=== PATIENT | male | born 1990 | race Caucasian/White ===

== ENCOUNTER 2016-06-26 15:20 | Inpatient (IN) | payer OTHER ==
[~2016-06-26] VITALS: Ht 175.3 cm; Wt 91.9 kg
--- NOTE | ~2016-06-26 | HC ---
[facility] [place] [address] CONSULTATION Name: ANTONIO BARRAZA Room #: 219-P [facility] IN .R.#: [id number] Admission: 06/26/16 Attend Phys: Audi Beyer MD Discharge: Date of : 88 Report #: [id number] THIS REPORT FOR: //name// CC: TITO physician/PCP Audi Beyer DATE OF SERVICE: 06/26/2016 REFERRING PROVIDER: Dr. Pichardo. REASON FOR CONSULTATION: Abdominal pain. HISTORY OF PRESENT ILLNESS: The patient is a 26-year-old male, who presented to the emergency room with left lower quadrant abdominal pain, nausea and fever. The patient initially had symptoms 3 weeks ago where he made an appointment to be seen; however, his symptoms resolved spontaneously and he postponed being seen. Unfortunately, the patient's symptoms have returned and he presented to the emergency room for evaluation earlier today, which showed leukocytosis, febrile episode and a CT scan that showed his entire left colon being inflamed with a focal area of extraluminal air consistent with microperforation. The patient has been admitted and I have been asked to evaluate. Currently, the patient exhibits no signs of peritonitis and is resting comfortably in his bed after receiving pain medication. PAST MEDICAL HISTORY: None. HOME MEDICATIONS: None. ALLERGIES: No known drug allergies. FAMILY HISTORY: Reviewed and noncontributory. SOCIAL HISTORY: The patient does not utilize cigarettes or illicit drugs. He does consume alcohol socially on the weekends and does use chewing tobacco. REVIEW OF SYSTEMS: GENERAL: The patient states positive fevers and chills. No recent weight loss. HEENT: No change in vision, no change in hearing. NECK: No swelling or difficulty swallowing. HEART: No chest pain or palpitations. LUNGS: No cough or shortness of breath. ABDOMEN: Abdominal pain with nausea. GENITOURINARY: No dysuria or hematuria. ENDOCRINE: No polyuria, polydipsia. HEMATOLOGIC: No history of bleeding or easy bruising. EXTREMITIES: No history weakness or limited range of motion. [facility] [address] [place] [address] CONSULTATION Name: ANTONIO BARRAZA Room #: 219-P [facility] IN M.R.#: [id number] Admission: 06/26/16 Attend Phys: Audi Beyer MD Discharge: Date of : 88 Report #: [id number] NEUROLOGIC: No history of syncope or near syncopal episodes. SKIN AND INTEGUMENT: No history of abnormal lesions or moles. PSYCHIATRIC: No history of anxiety or depression. PHYSICAL EXAMINATION: VITAL SIGNS: Temperature 97.9, pulse 85, respirations 18, blood pressure 122/71. He stands 5 feet 9 inches tall and weighs 179 pounds. GENERAL: Alert and oriented, although somnolent, in no acute distress. HEENT: Normocephalic, atraumatic. Pupils equal, round, reactive to light. NECK: Supple, without lymphadenopathy. Trachea midline. HEART: Regular rate and rhythm. LUNGS: Clear to auscultation bilaterally. ABDOMEN: Soft, nondistended. He is tender to palpation in the entire left flank with minimal guarding and no rebound. GENITOURINARY: Normal external male genitalia. EXTREMITIES: No clubbing, cyanosis or edema. NEUROLOGIC: Cranial nerves 2-12 are grossly intact. PSYCHIATRIC: Normal mood and affect. SKIN AND INTEGUMENT: No abnormal lesions or moles. LABORATORY AND X-RAY DATA: CBC shows a white blood cell count of 19.1 thousand, hemoglobin 14.6, platelets 260,000. He does have 87% neutrophils. His creatinine is 1.4. Liver function enzymes are largely normal with the exception of his bilirubin slightly elevated at 1.7, albumin is 4.2. Urinalysis is largely negative except he does have 1+ bilirubin. Lactic acid normal at 0.8. CT scan of the abdomen and pelvis shows long segment left colonic inflammation with microperforation and contained air. He also has wall thickening of the urinary bladder, likely secondary to its juxtaposition next to the inflamed colon. ASSESSMENT AND PLAN: A 26-year-old male with left-sided colitis. This is likely inflammatory bowel disease versus infectious and less likely diverticulitis with microperforation. Nonetheless, the patient is not toxic at this time with no peritonitis and will be managed conservatively with IV fluid rehydration, bowel rest with n.p.o. status and IV antibiotics in the form of Zosyn and Flagyl. We will perform serial abdominal exams, repeat labs daily and if the patient continues to improve, repeat his CAT scan in 3 days' time for further evaluation. I will ask gastroenterology to evaluate as the patient will undoubtedly need colonoscopy in 4-6 weeks' time after resolution of his symptoms to further evaluate. In the meantime, we will obtain stool studies for routine pathogens as well as C. diff colitis. [facility] [address] [place] [address] CONSULTATION Name: ANTONIO BARRAZA Room #: 219-P AD[facility] IN M.R.#: [id number] Admission: 06/26/16 Attend Phys: Audi Beyer MD Discharge: Date of : 89 Report #: [id number] I sincerely appreciate this consult. I will follow closely and leave any further recommendations in the patient's chart as appropriate. <ELECTRONICALLY SIGNED> By: Romina Jefferson MD, FACS 06/29/16 0748 [id number] Romina Jefferson MD, FACS /nt
[2016-06-26 15:38] VITALS: BP 130/83
[2016-06-26 17:44] LABS: URINE BILIRUBIN 1+ (Negative); URINE BLOOD TRACE (Negative); URINE COLOR YELLOW; URINE GLUCOSE-RANDOM* NEGATIVE (Negative); URINE KETONES NEGATIVE (Negative); URINE NITRITE NEGATIVE (Negative); URINE PROTEIN (DIPSTICK) TRACE (Negative); URINE UROBILINOGEN 0.2 E.U./dl (0.2-1.0)
[2016-06-26 17:45] LABS: ICTOTEST (BILI CONFIRMATORY) Negative (Negative)
[2016-06-26 18:04] LABS: RBC 4.64 mil/uL (4.50-6.00); RDW 13.2 % (10.5-14.5)
[2016-06-26 18:06] LABS: HEMATOCRIT 41.4 % (42.0-52.0); HEMOGLOBIN 14.6 gm/dL (14.0-18.0); MCH 31.4 pg (26.0-34.0); MCHC 35.3 g/dL (28.0-37.0); MCV 89.1 fL (80.0-100.0); PLATELET COUNT 260 thou/uL (150-400); WBC 19.1 thou/uL (4.0-11.0)
[2016-06-26 18:07] LABS: MANUAL DIFF YES
[2016-06-26 18:16] LABS: CALCIUM 9.5 mg/dL (8.5-10.1); CREATININE 1.4 mg/dL (0.7-1.3); POTASSIUM 3.7 mmol/L (3.5-5.1)
[2016-06-26 18:20] LABS: ALBUMIN 4.2 g/dL (3.4-5.0); TOTAL BILIRUBIN 1.7 mg/dL (<0.1-1.0); TOTAL PROTEIN 8.5 g/dL (6.4-8.2)
[2016-06-26 19:02] LABS: ABSOLUTE NEUTROPHILS 16.6 thou/uL (1.4-8.2); PLATELET ESTIMATE NORMAL; TOTAL CELL COUNT 100
[2016-06-26 20:52] VITALS: BP 122/71
[2016-06-26 23:42] VITALS: BP 112/72
[2016-06-27 04:03] VITALS: BP 113/65
[2016-06-27 04:08] LABS: HEMATOCRIT 37.4 % (42.0-52.0); HEMOGLOBIN 12.9 gm/dL (14.0-18.0); MCH 31.4 pg (26.0-34.0); MCHC 34.5 g/dL (28.0-37.0); MCV 90.9 fL (80.0-100.0); RBC 4.12 mil/uL (4.50-6.00); RDW 13.3 % (10.5-14.5)
[2016-06-27 04:11] LABS: CALCIUM 8.8 mg/dL (8.5-10.1); CREATININE 1.2 mg/dL (0.7-1.3); POTASSIUM 3.8 mmol/L (3.5-5.1)
[2016-06-27 12:10] VITALS: BP 101/70
[2016-06-27 17:05] VITALS: BP 122/79
[2016-06-27 20:06] VITALS: BP 123/76
[2016-06-28 03:08] LABS: HEMATOCRIT 33.5 % (42.0-52.0); HEMOGLOBIN 11.7 gm/dL (14.0-18.0); MCH 31.5 pg (26.0-34.0); MCV 89.8 fL (80.0-100.0); RBC 3.73 mil/uL (4.50-6.00)
[2016-06-28 03:34] LABS: ALBUMIN 2.8 g/dL (3.4-5.0); CALCIUM 8.6 mg/dL (8.5-10.1); CREATININE 1.1 mg/dL (0.7-1.3); DIRECT BILIRUBIN 0.5 mg/dL (<0.1-0.3); POTASSIUM 3.8 mmol/L (3.5-5.1); TOTAL BILIRUBIN 1.3 mg/dL (<0.1-1.0); TOTAL PROTEIN 6.3 g/dL (6.4-8.2)
[2016-06-28 05:53] VITALS: BP 121/74
[2016-06-28 07:14] VITALS: BP 115/75
[2016-06-28 11:24] VITALS: BP 130/86
[2016-06-28 15:40] VITALS: BP 125/87
[2016-06-28 19:17] VITALS: BP 127/87
[2016-06-29 03:23] LABS: HEMATOCRIT 34.4 % (42.0-52.0); MCH 31.5 pg (26.0-34.0); MCHC 34.8 g/dL (28.0-37.0); MCV 90.6 fL (80.0-100.0); RBC 3.8 mil/uL (4.50-6.00); RDW 13.1 % (10.5-14.5)
[2016-06-29 03:42] VITALS: BP 125/92
[2016-06-29 03:54] LABS: ALBUMIN 2.9 g/dL (3.4-5.0); CALCIUM 8.6 mg/dL (8.5-10.1); POTASSIUM 3.5 mmol/L (3.5-5.1); TOTAL BILIRUBIN 1.1 mg/dL (<0.1-1.0); TOTAL PROTEIN 6.5 g/dL (6.4-8.2)
[2016-06-29 07:35] VITALS: BP 125/84
[2016-06-29 11:50] VITALS: BP 110/74
[2016-06-29] MEDS ORDERED: FLAGYL500 MG PO (15:14)
[2016-06-29] MEDS ORDERED: HYDROCODONE-AP1 EAC6 PO (15:14)
[2016-06-29] MEDS ORDERED: CIPRO500 MG PO (15:14)
[2016-06-29 15:39] VITALS: BP 110/74
[2016-06-29 17:10] VITALS: BP 110/74
== END 2016-06-29 17:15 | disposition home or self-care (01) | DRG 392 ==
LOC: ER 15:20 → 2N 19:46 → EROBS 19:46 → 2N 20:21
PROVIDERS: Emergency Medicine; Physician Assistant; Surgery
DX: K57.80 Diverticulitis of intestine, part unspecified, with perforation and abscess without bleeding (principal); N17.9 Acute kidney failure, unspecified; F17.210 Nicotine dependence, cigarettes, uncomplicated; K52.9 Noninfective gastroenteritis and colitis, unspecified; D72.829 Elevated white blood cell count, unspecified; E86.0 Dehydration; Z71.6 Tobacco abuse counseling
CPT/HCPCS: 10194

== ENCOUNTER → 2016-08-18 | Outpatient (CLI) | payer OTHER ==
[~2016-08-18] VITALS: Ht 172.7 cm; Wt 86.2 kg
[~2016-08-18] MED LIST: ADVIL200 M1 PO; CIPRO500 MG PO; CIPROFLOXACIN500 M1 PO; FLAGYL500 MG PO; HYDROCODONE-AP1 EAC6 PO; MULTI VITAMIN1 EACH PO; NORCO 5-325 TA1 EACH PO
== END | disposition home or self-care (01) ==
LOC: GI 08:01
DX: K57.30 Diverticulosis of large intestine without perforation or abscess without bleeding (principal); Z98.890 Other specified postprocedural states
CPT/HCPCS: 62110; 62900

== ENCOUNTER 2016-09-13 20:56 | Inpatient (IN) | payer OTHER ==
[~2016-09-13] VITALS: Ht 172.7 cm; Wt 83.9 kg
--- NOTE | ~2016-09-13 | HC ---
[facility] [place] [address] CONSULTATION Name: ANTONIO BARRAZA Room #: 305-P [facility]..#: [id number] Admission: 09/14/16 Attend Phys: Jean Horne MD Discharge: 09/16/16 Date of : 89 Report #: [id number] THIS REPORT FOR: //name// CC: Jean Ordonez DATE OF SERVICE: 09/14/2016 REFERRING PROVIDER: Jean Horne M.D. REASON FOR CONSULTATION: Abdominal pain. HISTORY OF PRESENT ILLNESS: The patient is a 26-year-old male who is well known to me as I have seen him for prior episode of sigmoid diverticulitis with microperforation. Since my initial meeting with him in June of this past year, he has had 2 subsequent bouts of recurrent sigmoid diverticulitis without microperforation that have been treated with oral antibiotic therapy as an outpatient. The patient did receive a colonoscopy a few weeks ago by Dr. Treviño which showed a singular diverticulum within the sigmoid colon; however, no other acute findings. As the patient has had recurrent left lower quadrant pain said and he presented back to the Emergency Room for evaluation, whereby he was found to have yet again another bout of sigmoid diverticulitis with a small microperforation and for that reason, I have been asked to evaluate. Currently, the patient feels well with the exception of left lower quadrant pain and diarrhea and has no other complaints today. PAST SURGICAL HISTORY: None other than his recurrent sigmoid diverticulitis. HOME MEDICATIONS: Multivitamin and Advil p.r.n. ALLERGIES: No known drug allergies. SOCIAL HISTORY: The patient does not utilize cigarettes or illicit drugs. He drinks alcohol socially and never to excess and does chew tobacco occasionally. FAMILY HISTORY: Reviewed and is reviewed and noncontributory. REVIEW OF SYSTEMS: GENERAL: The patient states he has had subjective fevers and chills. HEENT: No change in vision, change in hearing. NECK: No swelling or difficulty swallowing. HEART: No chest pain, palpitations. LUNGS: No cough or shortness of breath. ABDOMEN: Abdominal pain with diarrhea. GENITOURINARY: No dysuria or hematuria. ENDOCRINE: No polyuria, polydipsia. HEMATOLOGIC: No history of bleeding or easy bruising. [facility] [address] [place] [address] CONSULTATION Name: ANTONIO BARRAZA Room #: 305-P [facility] IN [facility].#: [id number] Admission: 09/14/16 Attend Phys: Jean Horne MD Discharge: 09/16/16 Date of : 89 Report #: [id number] EXTREMITIES: No history of weakness or limited range of motion. NEUROLOGIC: No history of syncope or near syncopal episodes. SKIN AND INTEGUMENT: No history of abnormal lesions or moles. PSYCHIATRIC: No history of anxiety or depression. PHYSICAL EXAMINATION: VITAL SIGNS: Temperature 37.1, pulse 64, respirations 18, blood pressure 109/60. GENERAL: Alert and oriented, in no acute distress. HEENT: Normocephalic, atraumatic. Pupils equal, round, reactive to light. NECK: Supple, without lymphadenopathy. Trachea midline. HEART: Regular rate and rhythm. LUNGS: Clear to auscultation bilaterally. ABDOMEN: Soft, nondistended. He is tender to palpation in left lower quadrant with very minimal guarding, but no rebound. He certainly has no peritoneal signs or symptoms. GENITOURINARY: Normal external male genitalia. EXTREMITIES: No clubbing, cyanosis or edema. NEUROLOGIC: Cranial nerves 2-12 are grossly intact. PSYCHIATRIC: Normal mood and affect. SKIN AND INTEGUMENT: No abnormal lesions or moles. LABORATORY AND X-RAY DATA: CBC showed white blood cell count 11.0 thousand, Hemoglobin 13.6, platelets 282,000. He does have a left shift with 78% neutrophils as well. The patient's creatinine is 1.0. Liver function enzymes are normal. Lipase is normal at 74. Lactate is normal at 0.9. CT scan of the abdomen and pelvis as per HPI shows sigmoid diverticulitis with a solitary diverticulum with adjacent inflammatory fat stranding and a small extraluminal gas bubble concerning for microperforation once again. ASSESSMENT AND PLAN: A 26-year-old male with fourth episode of diverticulitis in 3 months, the second of which is consistent with a microperforation who is currently admitted and on IV fluids. I recommend continuation of IV antibiotics in the form of Zosyn and Flagyl and hopefully he will improve with conservative measures once again. Once we get him through this infectious episode, taking into account, otherwise normal colonoscopy just a month ago, I have recommended a formal sigmoid colectomy for his diverticulitis. I would likely do this laparoscopically with robotic assistance in 2-3 weeks' time once he is over this current infectious episode. After a thorough discussion of this with the patient and his significant other, they have agreed to proceed as outlined. We will therefore continue n.p.o. status, IV fluids, IV antibiotics at this time with a slow advancement in his oral intake as his clinical situation allows and ultimately transition him to oral antibiotics for outpatient therapy in the form of Augmentin and Flagyl as he has recently failed Cipro, Flagyl as a regimen. [facility] [address] [place] [address] CONSULTATION Name: ANTONIO BARRAZA Room #: 305-P [facility] IN M.R.#: [id number] Admission: 09/14/16 Attend Phys: Jean Horne MD Discharge: 09/16/16 Date of : 89 Report #: [id number] I sincerely appreciate this consult. I will follow closely and leave any further recommendations in the patient's chart as appropriate. <ELECTRONICALLY SIGNED> By: Romina Jefferson MD, FACS 09/18/16 0748 [id number] [id number] Romina Jefferson MD, FACS /nt
[2016-09-13 21:11] VITALS: BP 129/85
[2016-09-13] MEDS ORDERED: FLAGYL500 MG PO (22:03)
[2016-09-13] MEDS ORDERED: CIPRO250 M1 PO (22:03)
[2016-09-13 22:31] LABS: ABSOLUTE NEUTROPHILS 8.6 thou/uL (1.4-8.2); BASOPHILS 0.7 % (0.0-2.0); EOSINOPHILS 0.7 % (0.0-3.0); HEMOGLOBIN 13.6 gm/dL (14.0-18.0); LYMPHOCYTES 10.7 % (24.0-44.0); MCH 31.6 pg (26.0-34.0); MCHC 34.9 g/dL (28.0-37.0); MCV 90.5 fL (80.0-100.0); MONOCYTES 9.7 % (1.0-8.0); PLATELET COUNT 282 thou/uL (150-400); POLYS 78.2 % (36.0-66.0); RBC 4.31 mil/uL (4.50-6.00); RDW 14.2 % (10.5-14.5)
[2016-09-13 22:33] LABS: CALCIUM 9.6 mg/dL (8.5-10.1); POTASSIUM 3.7 mmol/L (3.5-5.1)
[2016-09-13 22:37] LABS: MANUAL DIFF NO
[2016-09-13 22:39] LABS: ALBUMIN 3.9 g/dL (3.4-5.0); TOTAL BILIRUBIN 0.8 mg/dL (<0.1-1.0); TOTAL PROTEIN 7.8 g/dL (6.4-8.2)
[2016-09-14 02:18] VITALS: BP 116/68
[2016-09-14 02:30] VITALS: BP 116/68
[2016-09-14 07:47] VITALS: BP 109/60
[2016-09-14 20:00] VITALS: BP 120/80
[2016-09-15] VITALS: BP 115/76
[2016-09-15 04:00] VITALS: BP 113/75
[2016-09-15 05:47] LABS: ABSOLUTE NEUTROPHILS 5.7 thou/uL (1.4-8.2); BASOPHILS 0.8 % (0.0-2.0); EOSINOPHILS 2.4 % (0.0-3.0); HEMATOCRIT 38.2 % (42.0-52.0); HEMOGLOBIN 13.2 gm/dL (14.0-18.0); LYMPHOCYTES 12.8 % (24.0-44.0); MCH 31.3 pg (26.0-34.0); MCHC 34.5 g/dL (28.0-37.0); MCV 90.8 fL (80.0-100.0); MONOCYTES 8.2 % (1.0-8.0); PLATELET COUNT 306 thou/uL (150-400); POLYS 75.8 % (36.0-66.0); RBC 4.21 mil/uL (4.50-6.00); RDW 14.1 % (10.5-14.5); WBC 7.5 thou/uL (4.0-11.0)
[2016-09-15 05:59] LABS: MANUAL DIFF NO
[2016-09-15 08:21] VITALS: BP 118/85
[2016-09-15 15:36] VITALS: BP 110/67
[2016-09-15 19:50] VITALS: BP 122/79
[2016-09-16 03:45] VITALS: BP 117/66
[2016-09-16 03:51] LABS: CALCIUM 8.9 mg/dL (8.5-10.1); CREATININE 0.9 mg/dL (0.7-1.3); POTASSIUM 3.5 mmol/L (3.5-5.1)
[2016-09-16 04:05] LABS: HEMATOCRIT 36.6 % (42.0-52.0); HEMOGLOBIN 13.1 gm/dL (14.0-18.0); MCH 31.8 pg (26.0-34.0); MCHC 35.7 g/dL (28.0-37.0); MCV 88.9 fL (80.0-100.0); RBC 4.12 mil/uL (4.50-6.00); RDW 13.9 % (10.5-14.5); WBC 4.7 thou/uL (4.0-11.0)
[2016-09-16 08:20] VITALS: BP 119/80
[2016-09-16] MEDS ORDERED: AUGMENTIN 875875 MG PO ×2 (13:45→14:04)
[2016-09-16] MEDS ORDERED: TRAMADOL 50 MG50 MG PO (14:03)
[2016-09-16] MEDS ORDERED: FLAGYL500 MG PO (14:05)
[2016-09-16 14:06] VITALS: BP 119/80
[2016-09-16 14:35] VITALS: BP 119/80
== END 2016-09-16 14:30 | disposition home or self-care (01) | DRG 392 ==
LOC: ER 20:56 → 3N 09-14 00:55 → EROBS 09-14 00:55 → 3N 09-14 02:44
PROVIDERS: Emergency Medicine; Nurse Practitioner Adult Health; Surgery
DX: K57.20 Diverticulitis of large intestine with perforation and abscess without bleeding (principal); K08.409 Partial loss of teeth, unspecified cause, unspecified class; F17.220 Nicotine dependence, chewing tobacco, uncomplicated; Z79.899 Other long term (current) drug therapy
CPT/HCPCS: 10795

== ENCOUNTER 2016-10-27 10:26 | Inpatient (IN) | payer OTHER ==
[~2016-10-27] VITALS: Ht 175.3 cm; Wt 83.9 kg
--- NOTE | ~2016-10-27 | O ---
[facility] [place] [address] OPERATIVE REPORT Name: LAKIAANTONIO MATIAS Room #: 410-P [facility] IN M.R.#: [id number] Admission: 11/07/16 Attend Phys: Romina Jefferson MD, Discharge: Date of : 89 Report #: [id number] THIS REPORT FOR: //name// CC: Romina Ordonez DATE OF SERVICE: 11/07/2016 PREOPERATIVE DIAGNOSES: 1. Multiple bouts of acute sigmoid diverticulitis, one prior microperforation event. 2. Sigmoid diverticulosis. POSTOPERATIVE DIAGNOSES: 1. Multiple bouts of acute sigmoid diverticulitis, one prior microperforation event. 2. Sigmoid diverticulosis. 3. Umbilical hernia. PROCEDURES PERFORMED: 1. Laparoscopic sigmoid colectomy with stapled reanastomosis. 2. Laparoscopic mobilization of the splenic flexure. 3. Laparoscopic primary suture repair of an umbilical hernia defect. SURGEON: Romina Jefferson MD HOME OFFICE CLAIMS EXAMINER: Adiel Suazo MD ANESTHESIA: General endotracheal anesthesia. ESTIMATED BLOOD LOSS: Minimal (less than 10 mL). COMPLICATIONS: None appreciated. SPECIMENS: Sigmoid colon with open end being proximal to pathology. INDICATIONS: The patient is a 26-year-old male who has been hospitalized on numerous occasions for acute sigmoid diverticulitis. The patient's first such event was such that he had a microperforation and was treated with IV antibiotic therapy. The patient then had 2 other subsequent bouts of diverticulitis that were treated with oral antibiotics as an outpatient to get effect. Unfortunately, the patient then had yet another inpatient admission for sigmoid diverticulitis that required IV antibiotic therapy. The patient received a colonoscopy showing a solitary inflamed diverticulum in the sigmoid colon and secondary to his 4 bouts of diverticulitis within a 6-month period, indication was for definitive surgical management with sigmoid colectomy [address] [address] OPERATIVE REPORT Name: ANTONIO BARRAZA Room #: 410-P [facility] IN [facility]#: [id number] Admission: 11/07/16 Attend Phys: Romina Jefferson MD, Discharge: Date of : 89 Report #: [id number] today. PROCEDURE: After explaining the risks, benefits and alternatives of the procedure with the patient in detail in the preoperative holding area and obtaining written consent, the patient was brought to the operating room and placed supine on the operating room table. After conducting a thorough timeout procedure, verifying correct patient and procedure, the patient was given general endotracheal anesthesia. Once adequate anesthesia was obtained, SCDs were hooked up to the pneumatic compression device, he was given a preoperative dose of antibiotics in line with the SCIP protocol. The patient's abdomen was now prepped and draped in standard surgical sterile fashion after positioning him in the low lithotomy position with his legs in the Yellofin stirrups. 5 mL of 0.5% Marcaine with epinephrine were used to anesthetize the skin in the supraumbilical location. A #15 bladed scalpel was used to create a 1-cm transverse skin incision at this location. An 11-mm Visiport was placed over 0-degree 5-mm laparoscope and was introduced through this incision site. Once intraabdominal placement was verified visually, the obturator for the trocar and the laparoscope were both removed and the abdomen was insufflated to 15 mmHg using carbon dioxide gas. The laparoscope was changed to a 10-mm 30-degree laparoscope, which was reintroduced through this trocar. The entire abdomen was evaluated to ensure no injury upon entry. I now proceeded to place additional working trocars in the patient's abdomen. A 5-mm port was placed in the suprapubic location and an additional 12-mm port was placed in the right lower quadrant. Both additional trocars were placed under direct vision after anesthetizing the skin at each location with 5 mL of 0.5% Marcaine with epinephrine, and I had created appropriately sized skin nicks using a #15 bladed scalpel. I now proceeded to perform a thorough evaluation of the intra-abdominal domain showing no further evidence of pathology anywhere except for the sigmoid colon, which was tethered to the left lateral pelvic sidewall and had stigmata of prior episodes of inflammation. The patient's appendix was healthy. His gallbladder was healthy and did not appear to have any evidence of cholecystitis. The patient was now placed in Trendelenburg with left side elevated and I proceeded to mobilize the left colon along the white line of Toldt using the articulating EnSeal device. Care was taken to avoid the left ureter, which was identified in its usual course and we stayed well away from this at all times. Once I had mobilized the left colon, the sigmoid was slightly redundant and was retracted cephalad. I was able to easily identify the rectosigmoid juncture and created a window in the mesentery using the EnSeal device. As the bowel was healthy at this juncture, I selected the [place] 60-mm stapler with a blue load entering it through the right lower quadrant 12-mm port. One blade of the stapler was passed through the window in the mesentery, it was clamped and fired completely transecting the colon at the rectosigmoid juncture. The proximal staple line was then elevated anteriorly and the articulating EnSeal device was used to take down the mesentery staying close to the bowel all the way cephalad until I was just superior to the area of inflammation seen at the outside of the procedure. The colon itself at the [facility] [address] [place] [address] OPERATIVE REPORT Name: ANTONIO BARRAZA Room #: 410-P [facility] IN M.R.#: [id number] Admission: 11/07/16 Attend Phys: Romina Jefferson MD, Discharge: Date of : 89 Report #: [id number] juncture of the descending and sigmoid colons appeared healthy with no inflammation and no stigmata of prior infection. There was no diverticula seen at this location all the way up and around the rest of the colon. Evaluation of the colon at this juncture precluded delivery of the specimen through the suprapubic location and as such, left lower quadrant was selected. An appropriate site was selected and anesthetized with 10 mL of 0.5% Marcaine with epinephrine. A #15 bladed scalpel was used to create a 3-cm transverse skin incision at this location. Electrocautery was used to carry this down through skin and subcutaneous tissue and muscle all the way to the intra-abdominal domain. A wound protector was then placed through this defect and the proximal staple line of the bowel was grasped with a Borup clamp and pulled up through the abdominal wall. This was visualized laparoscopically with the insufflation pressure of 5 mmHg to ensure we took it all the way at the mesenteric dissection. Once this was pulled all the way up, the colon itself was cleaned off with electrocautery and the auto-pursestring suture device was used at the appropriate location. Curved Chung scissors were used to transect the disease bowel and it was passed off the field with the open end being proximal. The auto-pursestring suture device was removed and three Allis clamps were placed on the open end of colon. The colon itself was now sized with the EEA sizers showing the appropriate size to be a 29 EEA. The anvil for the 29 EEA stapler was selected and placed in the open end of bowel with the pursestring suture tied down around it. We then cleaned off the end of bowel with a tonsil clamp and electrocautery, being careful not injury to the bowel in any way. Once we had done this, the bowel was placed back in the abdomen and a cap for the wound protector device was placed so that we could reestablish pneumoperitoneum. The abdomen was reinsufflated and Dr. Suazo proceeded to size the rectum under direct vision, which again showed a 29 EEA stapler is being the appropriate size. We were able to reapproximate the ends of bowel; however, it was going to be under slight tension and as such, I elected to fully mobilize the splenic flexure. The patient was placed in reverse Trendelenburg position and I proceeded to continue taking down white line of Toldt all the way up over the splenic flexure, which allowed me to drop the entire colon low in the pelvis. Reevaluation at this juncture showed approximately 6 cm of overlap of the descending colon and the superior rectum, thereby owing to a tension-free reanastomosis. The 29 EEA stapler was then placed up the rectum and the spike was delivered through the end of the rectal stump. The spike was mated to the anvil and the stapler was closed in standard fashion under direct vision ensuring that we did not have any mesentery or omentum trapped between the 2 ends of bowel. We also assured ourselves that there was no twisting to the bowel whatsoever. Once the stapler was ratcheted down, it was fired completing the anastomosis. This was then removed under direct vision and the anastomotic rings were evaluated showing 2 complete beefy anastomotic donuts. I then performed a leak test placing the patient in reverse Trendelenburg position again, I clamped the bowel proximal to the anastomosis and filled the pelvis with normal saline. We now performed 3 leak tests using the rigid proctoscope up the rectum to fully inflate the rectum across the anastomosis and saw no [facility] [address] [place] [address] OPERATIVE REPORT Name: ANTONIO BARRAZA Room #: 410-P [facility] IN .R.#: [id number] Admission: 11/07/16 Attend Phys: Romina Jefferson MD, Discharge: Date of : 89 Report #: [id number] evidence of bubbling in the pelvis whatsoever. A suction donor services technician device was used to fully evacuate the fluid, which ran clear. There was a very gentle ooze near the edge of the bowel at the anastomosis from the mesentery and I placed a piece of Surgicel around this at this time. I now placed fascial closing sutures around the right lower quadrant and supraumbilical trocar sites using 0 PDS suture on a Goran-Leah needle under direct vision. These were not tied down at this juncture, but was tagged with hemostats and the trocars were placed under direct vision. The abdomen was now fully desufflated and I proceeded to remove the wound protector and then I closed the fascia at this location using 0 PDS suture in standard running fashion. This was tied down. The abdomen was gently reinsufflated to 8 mmHg and there was a peritoneal defect that was concerning for possible potential incarceration if small-bowel should find its way into that defect and as such, I selected the EndoStitch device with a 2-0 Vicryl suture. I then proceeded to perform our running suture in standard fashion of the peritoneum and muscular layer to ensure no potential for incarceration would exit. Attention was then turned back to the bowel, the Surgicel was removed and I elected to deliver 10 mL of Tisseel on the Duplospray device around the entire anastomosis, both for hemostasis as well as to assist with sealing of the anastomosis to prevent leaking. One final evaluation of the intra-abdominal domain showed no further evidence of pathology. At the outset of the procedure, the patient did have an umbilical hernia and the trocar was placed directly through this. As such, I effectively performed a primary suture repair of an umbilical hernia. I now removed the supraumbilical and right lower quadrant trocars under direct vision and tied down each of the sutures under direct vision to ensure I did not catch a loop of bowel or omentum in the suture repair. The abdomen was then fully desufflated through the suprapubic port and it was removed under direct vision as well. 4-0 Monocryl was used in a standard subcuticular fashion for all skin incisions and Dermabond glue was applied to all skin wounds. At the end of the procedure, all instrument, needle and sponge counts were correct. The patient tolerated the procedure without incident, was awakened in the operating room and transitioned to the recovery room in stable condition with no apparent complications. <ELECTRONICALLY SIGNED> By: Romina Jefferson MD, FACS 11/08/16 0906 [id number] Romina Jefferson MD, FACS /nt
--- NOTE | ~2016-10-27 | S ---
[facility] [place] [address] SURGICAL PATH RPT PROCEDURE Name: ANTONIO BARRAZA Room #: 410-P [facility] IN M.R.#: [id number] Admission: 11/07/16 Date of : 88 Discharge: 11/09/16 Report #: [id number] Path Case #: [id number] PATHOLOGY REPORT COLLECTION DATE: 11/07/2016 RECEIVED DATE: 11/08/2016 SUBMITTING PHYS: Dr. Romina Jefferson OTHER PHYS: Dr. Adiel Ordonez SPECIMEN(S) RECEIVED: A.Sigmoid * * * * * * * * * * * * FINAL DIAGNOSIS: "Sigmoid," resection: - Diverticulosis with focal submucosal fibrosis and delicate serosal fibrous adhesions; history of multiple episodes of acute diverticulitis. (CLW:; 11/09/2016) PATHOLOGIST: Christiane Puentes M.D. REPORT ELECTRONICALLY SIGNED BY: Christiane Puentes M.D. DATE/TIME: 11/09/2016 20:50 * * * * * * * * * * * * GROSS PATHOLOGY: The specimen is received in formalin, labeled "Antonio Barraza sigmoid "and consists of an unoriented and un-opened segment of large intestine measuring 12.5 cm in length of by 1.7 cm in diameter. The mesocolon measures up to 4.2 cm in thickness. One margin is closed with kamila while the opposing margin is opened. The serosa is smooth, glistening, celis, pink, and focally hemorrhagic. The segment is opened longitudinally. The lumen diameter is narrow measuring 0.7 cm. The mucosa is folded, glistening, celis, and slightly hyperemic. The muscularis propria averages 0.3 cm thick. The segment is further serially transversely sectioned revealing occasional diverticula ranging in depth from 0.2 cm to 0.4 cm. The diverticula are non-complicated. No significantly enlarged lymph nodes are identified. Laboratory Secretary sections are submitted A1-A6. A1 stapled resection margin A2 open resection margin A3-A6 sections of non-complicated diverticula (GODFREY; 11/08/2016) [address] [place] [place] [address] SURGICAL PATH RPT PROCEDURE Name: ANTONIO BARRAZA Room #: 410-P [facility] IN [facility].#: [id number] Admission: 11/07/16 Date of : 88 Discharge: 11/09/16 Report #: [id number] Path Case #: [id number] CLINICAL HISTORY: Diverticulitis INITIAL CPT CODE(S): A; 18796 Professional services performed by [facility] at [facility] [address] [place] [address] Technical services performed by [facility] at [address] [place] [address], [facility] [address] [address]. [facility] [address] [address] PHONE: [phone] DIRECTOR: Kahlil W. Otilia, M.D. * * * END OF REPORT * * *
[~2016-10-27 10:26] MED LIST changes: +AUGMENTIN 875875 MG PO; +CIPRO250 M1 PO; +TRAMADOL 50 MG50 MG PO
[2016-11-03] MEDS ORDERED: PROBIOTIC1 EAC1 PO (14:47)
[2016-11-07 11:30] VITALS: BP 146/80
[2016-11-07 20:04] VITALS: BP 122/67
[2016-11-08 00:15] VITALS: BP 122/63
[2016-11-08 05:35] VITALS: BP 124/84
[2016-11-08 07:55] LABS: HEMATOCRIT 35.8 % (42.0-52.0); HEMOGLOBIN 12.6 gm/dL (14.0-18.0); MCH 31.5 pg (26.0-34.0); MCHC 35.3 g/dL (28.0-37.0); MCV 89.1 fL (80.0-100.0); RBC 4.02 mil/uL (4.50-6.00); RDW 13.6 % (10.5-14.5)
[2016-11-08 08:08] LABS: CREATININE 1.1 mg/dL (0.7-1.3); POTASSIUM 4.2 mmol/L (3.5-5.1)
[2016-11-08 08:15] VITALS: BP 113/61
[2016-11-08 16:00] VITALS: BP 118/81
[2016-11-08 20:03] VITALS: BP 115/73
[2016-11-09 04:12] VITALS: BP 134/69
[2016-11-09 06:06] LABS: HEMATOCRIT 34.1 % (42.0-52.0); HEMOGLOBIN 12.1 gm/dL (14.0-18.0); MCH 31.6 pg (26.0-34.0); MCHC 35.5 g/dL (28.0-37.0); MCV 88.8 fL (80.0-100.0); RBC 3.84 mil/uL (4.50-6.00); RDW 13.2 % (10.5-14.5); WBC 8.4 thou/uL (4.0-11.0)
[2016-11-09 06:10] LABS: CALCIUM 8.7 mg/dL (8.5-10.1); CREATININE 0.9 mg/dL (0.7-1.3); POTASSIUM 3.8 mmol/L (3.5-5.1)
[2016-11-09] MEDS ORDERED: HYDROCODONE-AP1 EAC6 PO (09:28)
[2016-11-09] MEDS ORDERED: ZOFRAN ODT4 MG DISSOLVE (09:28)
[2016-11-09 11:10] VITALS: BP 134/69
== END 2016-11-09 13:50 | disposition home or self-care (01) | DRG 331 ==
LOC: PRE 10:26 → TBA 11-07 05:39 → 4N 11-07 05:39 → PRE 11-07 08:28 → 4N 11-07 16:50
PROVIDERS: Surgery
DX: K57.30 Diverticulosis of large intestine without perforation or abscess without bleeding (principal); K42.9 Umbilical hernia without obstruction or gangrene
CPT/HCPCS: 10790; 50010; 50101; 50249; 50290; 50386; 50455; 50525; 50555; 50558; 50740; 50804; 51398; 51437; 51489; 52182; 52265; 53307; 54022; 54118; 55326; 56462; 56525; 56526; 56639; 56753; 57092; 62110; 62900; 70005

== ENCOUNTER 2016-11-15 17:34 | Inpatient (IN) | payer OTHER ==
[~2016-11-15] VITALS: Ht 175.3 cm; Wt 84.4 kg
--- NOTE | ~2016-11-15 | HC ---
[facility] [place] [address] CONSULTATION Name: ANTONIO BARRAZA Room #: 242-P [facility] IN ..#: [id number] Admission: 11/15/16 Attend Phys: Ramses Calero MD Discharge: Date of : 88 Report #: [id number] THIS REPORT FOR: //name// CC: Ramses Vanegas Ronny Antjosephine Hinojosaon DATE OF SERVICE: 11/15/2016 REFERRING PROVIDER: Ramses Calero MD. REASON FOR CONSULT: Abdominal pain. HISTORY OF PRESENT ILLNESS: The patient is a 26-year-old male who is well known to me as he is postoperative day #8, status post laparoscopic sigmoid colectomy for chronic recurrent diverticulitis. The patient's procedure was uncomplicated and he discharged home on postoperative day #2, doing well. The patient reports that he had been doing well at home until this morning when he woke up with severe epigastric abdominal pain. The patient attempted to go to work, but as his pain persisted and actually worsened throughout the day, he went home early and had fevers to 102 degrees. The patient also developed some shoulder pain and was concerned that he might have leaked from his anastomosis and as such, presented to the Emergency Room for evaluation. Workup in the Emergency Room in the form of laboratories and a CT scan of the chest, abdomen and pelvis were obtained. The patient's labs showed a leukocytosis with a white blood cell count of 14.0 thousand and his creatinine was just minimally elevated for him at 1.1. His liver function enzymes were slightly elevated, likely secondary to stress, however. The patient's chest x-ray showed free intraperitoneal gas that it was more than expected for postoperative day #8 and as such, he received a CT scan of the chest, abdomen and pelvis. This returned noticeable for no pulmonary emboli as well as no biliary dilatation or inflammation. He does have a moderate amount of free intraperitoneal gas with a left lower quadrant colectomy and anastomosis that shows no evidence of gas or fluid in the area of the anastomosis. The patient does also have scattered bubbles of gas in the upper mesentery near the distal stomach and proximal duodenum. The patient's lactic acid was normal at 1.2 and because of the above, I was asked to evaluate. Upon discussing with the patient and knowing that he does have extremely high anxiety, the patient and his fiancee states that his anxiety has been worse than normal at home over the past week and he does have a significant history of alcohol ingestion that was just revealed to me tonight. PAST MEDICAL HISTORY: Chronic recurrent sigmoid diverticulitis, now postoperative day #8 status post sigmoid colectomy that appears uncomplicated. He also has a new history of significant anxiety and alcohol abuse. HOME MEDICATIONS: None. [address] [address] CONSULTATION Name: ANTONIO BARRAZA Room #: 242-P [facility] IN ..#: [id number] Admission: 11/15/16 Attend Phys: Ramses Calero MD Discharge: Date of : 88 Report #: [id number] ALLERGIES: No known drug allergies. FAMILY HISTORY: Reviewed and noncontributory. SOCIAL HISTORY: The patient does not utilize tobacco or illicit drugs. He does use chewing tobacco and he and his fiancee report he does drink alcohol quite heavily at times. REVIEW OF SYSTEMS: GENERAL: The patient states positive fevers and chills. HEENT: No change in vision, change in hearing. NECK: No swelling or difficulty swallowing. HEART: No chest pain or palpitations. LUNGS: No cough or shortness of breath. ABDOMEN: Epigastric abdominal pain, but no nausea or vomiting. GENITOURINARY: No dysuria or hematuria. ENDOCRINE: No polyuria or polydipsia. HEMATOLOGIC: No history of bleeding or easy bruising. EXTREMITIES: No history of weakness or limited range of motion. NEUROLOGIC: No history of syncope or near syncopal episodes. SKIN AND INTEGUMENT: No history of abnormal lesions or moles. PSYCHIATRIC: No history of depression; however, I did uncover a new history of significant anxiety. PHYSICAL EXAMINATION: VITAL SIGNS: Temperature 102.8 degrees, pulse 119, respirations 24, blood pressure 98/53. GENERAL: He is alert and oriented, in minimal distress. HEENT: Normocephalic, atraumatic. Pupils equal, round, reactive to light. NECK: Supple, without lymphadenopathy. Trachea midline. HEART: Tachycardic, but regular rhythm. LUNGS: Clear to auscultation bilaterally. ABDOMEN: Soft, nondistended. No overt tenderness to palpation except in the epigastrium, which is only minimally tender to very deep palpation. He does not have any rebound, guarding or peritoneal signs or symptoms otherwise. He has normoactive bowel sounds and has been having bowel movements daily. GENITOURINARY: Normal external male genitalia. EXTREMITIES: No clubbing, cyanosis or edema. NEUROLOGIC: Cranial nerves 2-12 are grossly intact. PSYCHIATRIC: Normal mood and affect. SKIN AND INTEGUMENT: No abnormal lesions or moles. He does have well-healed incisions with a small hematoma at the site of his extraction in the left lower quadrant. LABORATORY AND X-RAY DATA: CBC shows white blood cell count of 14.0 thousand, [facility] [address] [place] [address] CONSULTATION Name: ANTONIO BARRAZA Room #: 242-P [facility] IN [facility]#: [id number] Admission: 11/15/16 Attend Phys: Ramses Calero MD Discharge: Date of : 88 Report #: [id number] hemoglobin 13.6, platelets 431,000. He does have 10% bands. The patient's creatinine is 1.1. Liver function enzymes are slightly elevated with an AST of 45, ALT 94, alkaline phosphatase 112, total bilirubin 1.8. Lipase is normal at 62, albumin is normal at 3.8. Lactic acid is normal at 1.2. CT scan of the chest, abdomen and pelvis as per HPI shows no pulmonary emboli, no gallbladder inflammatory findings, no ductal dilatation, a patent anastomosis in the left lower quadrant from his colectomy, which shows no evidence of free air, free fluid or abnormality. He does also have pockets of free intraperitoneal gas with a few scattered bubbles within the mesentery near the distal stomach and proximal duodenum. ASSESSMENT AND PLAN: This is a 26-year-old male, approximately postoperative day #8, status post uncomplicated laparoscopic sigmoid colectomy for chronic recurrent sigmoid diverticulitis, who appears to have contained perforation of either a gastric or duodenal ulcer. We see no evidence of free fluid or abscess formation at this time. This is likely secondary to stress ulcerations secondary to the patient's significant anxiety coupled with recent surgery and history of alcohol use as well as prior gastroesophageal reflux disease, for which he took Prilosec in high school. In absence of peritoneal findings with a normal lactic acid, again my hope is that this is a small perforation that has sealed already and I see no indication for emergent surgical intervention at this time. The patient will be admitted to the Hospitalist Service and we will initiate sepsis protocol as he does meet criteria with extreme tachycardia, leukocytosis and febrile episode. The patient will be given aggressive IV fluid resuscitation, IV antibiotics and a Protonix drip plus Pepcid at this time and I will perform serial abdominal exams. It may be necessary to repeat the patient's CT scan in a period of 48-72 hours to see if any abscess has formed within the abdominal cavity, which is a possibility with microperforation, but we will base that on clinical exam and workup. The patient will be kept n.p.o. at this time. I did spend greater than 60 minutes discussing all of the above with the patient and his fiancee as well as with Dr. Jace Oneal of the Radiology Service and Dr. Parker in the Emergency Room and coordinated the plan as delineated above. I sincerely appreciate this consult. I will follow closely and leave any further recommendations in the patient's chart as appropriate. <ELECTRONICALLY SIGNED> By: Romina Jefferson MD, FACS 11/17/16 1007 20 25 Romina Jefferson MD, FACS /nt
--- NOTE | ~2016-11-15 | EKG ---
[address] [address] ELECTROCARDIOGRAM REPORT Name: ANTONIO BARRAZA Room #: 242-[facility] IN .R.#: [id number] Admission: 11/15/16 Attend Phys: Ramses Calero MD Discharge: Date of : 88 Report #: [id number] THIS REPORT FOR: //name// [facility] ED Test Date: 2016-11-15 Test Time: 17:51:52 Pat Name: ANTONIO BARRAZA Department: Room: [facility] Gender: M Fitter Mechanic: MZOOMercedes : 1990 Requested By: Nimco Salinas Order Number: [id number] MD: Adarsh Bradley Measurements Intervals Wilson Rate: 98 P: 47 MN: 126 QRS: 21 QRSD: 90 T: 17 QT: 341 QTc: 436 Interpretive Statements Sinus rhythm Probable left atrial enlargement No previous ECG available for comparison Electronically Signed On 11-16-2016 7:45:55 CDT by Adarsh Bradley [email or web address] <ELECTRONICALLY SIGNED> By: Adarsh Bradley MD 11/16/16 0745 1751 50 Adarsh Bradley MD /SKYLER
--- NOTE | ~2016-11-15 | HC ---
[facility] [place] [address] CONSULTATION Name: ANTONIO BARRAZA Room #: 242-P [facility] IN ..#: [id number] Admission: 11/15/16 Attend Phys: Ramses Calero MD Discharge: Date of : 88 Report #: [id number] THIS REPORT FOR: //name// CC: Ramses Ordonez DATE OF SERVICE: 11/16/2016 REASON FOR CONSULTATION: I was asked to evaluate concerning peritonitis. HISTORY OF PRESENT ILLNESS: The patient is a 26-year-old who presented with fever and abdominal pain along with shoulder pain. Eight days prior, he had sigmoid resection for diverticular disease. There were no intraoperative or early postoperative complications noted. He had acute onset of shoulder pain and abdominal pain earlier this morning. He presented to the Emergency Room and was placed in the Intensive Care Unit. He was given IV fluids, broad antibiotic coverage and was taken to surgery where he was found to have a gastric ulcer with perforation. He is now in the postop recovery room, hemodynamically stable. PAST MEDICAL HISTORY: Diverticulitis in June of 2016, otherwise healthy. ALLERGIES: None known. MEDICATIONS: As noted on his MAR, which was reviewed. FAMILY HISTORY: Noncontributory. SOCIAL HISTORY: Nonsmoker, no significant alcohol intake. REVIEW OF SYSTEMS: The patient was unable to give any details. PHYSICAL EXAMINATION: VITAL SIGNS: Afebrile, hemodynamically stable. GENERAL: The patient was awakening from anesthesia. HEENT: NG tube in place. NECK: Supple. LUNGS: Clear. HEART: Regular. ABDOMEN: Diffusely tender. He had an abdominal incisional VAC in place. DIMITRY drains in place with serosanguineous output. Left lower quadrant incision, mild erythema. EXTREMITIES: Unremarkable. LABORATORY STUDIES: Sodium 136, potassium 3.6, bicarbonate 22, creatinine 1.3. [facility] [address] [place] [address] CONSULTATION Name: ANTONIO BARRAZA Room #: 242-P [facility] IN [facility]#: [id number] Admission: 11/15/16 Attend Phys: Ramses Calero MD Discharge: Date of : 88 Report #: [id number] Hemoglobin 12.2, white count 14.6, platelet count 342,000, 31% bands. Lactate 1.2. Liver function test normal. Procalcitonin 5.1. Lipase 62. Cultures pending. IMPRESSION: A 26-year-old 8 days out from colon resection and primary anastomosis, now status post surgery for perforated prepyloric gastric ulcer where washout and modified Gram patch repair of perforated prepyloric gastric ulcer was completed. He also had omental buttress to the colorectal anastomosis. Postoperatively, remained stable. RECOMMENDATION: We will continue broad antibiotic coverage. Await culture results. Screen for H. pylori. We will adjust antibiotics pending further microbiology reports. <ELECTRONICALLY SIGNED> By: Richie Michael MD 11/20/16 0757 1151 0623 Richie Michael MD /scar
--- NOTE | ~2016-11-15 | O ---
[facility] [place] [address] OPERATIVE REPORT Name: ANTONIO BARRAZA Room #: 242-P [facility] IN .R.#: [id number] Admission: 11/15/16 Attend Phys: Ramses Calero MD Discharge: Date of : 88 Report #: [id number] THIS REPORT FOR: //name// CC: Ramses Ordonez DATE OF SERVICE: 11/16/2016 PREOPERATIVE DIAGNOSIS: Abdominal sepsis. POSTOPERATIVE DIAGNOSES: 1. Abdominal sepsis. 2. Perforated prepyloric gastric ulcer. PROCEDURES PERFORMED: 1. Diagnostic laparoscopy converted to exploratory laparotomy with washout. 2. Modified Carlos patch repair of a perforated prepyloric gastric ulcer. 3. Omental buttressing of a recent colorectal anastomosis. SURGEON: Romina Jefferson M.D. CAMPAIGN CONSULTANT: Adiel Suazo M.D. ANESTHESIA: General endotracheal anesthesia. ESTIMATED BLOOD LOSS: Minimal (less than 20 mL). COMPLICATIONS: None appreciated. SPECIMENS: Culture swabs x 2 to microbiology. INDICATIONS: The patient is a 26-year-old male who presented to the emergency room last evening on postoperative day #8 after previously undergoing an uncomplicated laparoscopic sigmoid colectomy. The patient discharged home on postoperative day #2 after his colectomy and was doing exceptionally well over the weekend when on Sunday he drank several beers as he tends to do at baseline (which was newly revealed to us). The patient woke up yesterday morning with severe sudden onset epigastric abdominal pain that worsened throughout the day and as he began running a high fever, he presented to the Emergency Room for evaluation. Workup in the Emergency Room last evening showed a white blood cell count of approximately 14 thousand with a lactate of 1.[address] scan of the abdomen and pelvis showed a large amount of free air in the abdomen without any evidence of free fluid. He had a colorectal anastomosis that appeared uninflamed with no free fluid or bubbles of gas near the anastomosis as well as showing that it was widely patent. In the [facility] [address] [place] [address] OPERATIVE REPORT Name: ANTONIO BARRAZA Room #: 242-P [facility] IN ..#: [id number] Admission: 11/15/16 Attend Phys: Ramses Calero MD Discharge: Date of : 88 Report #: [id number] abdomen the patient did have a few scattered bubbles of gas trapped in the mesentery near the stomach and duodenal regions, which was highly concerning for a contained perforation from peptic ulcer disease. As the patient was not peritonitic, was just minimally tachycardic and was quite comfortable, a long discussion was held with him and his fiance in the Emergency Room and we had elected to observe at that time, especially in the absence of a large amount of free fluid in the abdomen on imaging. The hope was that his perforation sealed quickly and his discomfort was from the free air in the abdomen. The patient was monitored overnight on a proton pump inhibitor drip as well as broad spectrum antibiotics and ultimately was transitioned to the Intensive Care Unit without my notification until early this morning. Reasons for transfer were reportedly secondary to necessitating assistance by nursing care more than could be provided on the floor with broader staffing ratios. I learned about the patient this morning with a call stating that his procalcitonin was elevated at greater than 5, he was tachypneic to the 40s and was in significantly more abdominal pain as the night progressed. His white blood cell count remained approximately 14,000 and his lactate was again 1.2. I therefore presented to the bedside in the Intensive Care Unit where I found his abdomen to be more rigid and peritonitic and the decision was made to emergently proceed to the operating room for evaluation. Intraoperative finding of an intact normal anastomosis in the left lower quadrant was seen, as well as a perforated prepyloric gastric ulcer and a large amount of bile-stained intra-abdominal free fluid. DESCRIPTION OF PROCEDURE: After explaining the risks, benefits and alternatives of the procedure with the patient in great detail and obtaining consent, the patient was brought to the operating room and placed supine on the operating room table. After conducting a thorough timeout procedure, verifying correct patient and procedure, the patient was given general endotracheal anesthesia. Once adequate anesthesia was obtained, his sequential compression devices were hooked up to pneumatic compression device and he was already on an inpatient regimen of IV antibiotic therapy, which is all in line with the SCIP protocol. The patient's abdomen was then prepped and draped in the standard surgical sterile fashion. A 5 mL of 0.5% Marcaine with epinephrine was used to anesthetize the skin 3 cm cephalad to the umbilicus and a #15 bladed scalpel was used to create a small vertical skin millie at this location. A 5 mm Visiport was placed over a 0-degree 5-mm laparoscope and was introduced through this incision site. Once intraabdominal placement was verified visually, the obturator for the trocar and laparoscope were both removed and the abdomen was insufflated to 15 mmHg using carbon dioxide gas. The laparoscope was changed to a 5-mm 30-degree laparoscope, which was reintroduced through this trocar. The entire abdomen was evaluated at this juncture, and we saw a large amount of bile-stained fluid mainly in the upper abdomen, although there was some in the dependent area of the pelvis. At this juncture, I placed two additional 5 mm trocars, one in the left mid abdomen and the other in the right mid abdomen, both under direct vision after anesthetizing the skin at each location with 5 [facility] [address] [place] [address] OPERATIVE REPORT Name: ANTONIO BARRAZA Room #: 242-P [facility] IN ..#: [id number] Admission: 11/15/16 Attend Phys: Ramses Calero MD Discharge: Date of : 89 Report #: [id number] mL of 0.5% Marcaine with epinephrine and I had created small skin nicks using #15 bladed scalpel. At this juncture, I used the suction care program resident device to evacuate out nearly 2 liters of bile-stained fluid from the abdominal domain. Evaluation of the upper abdomen showed that the stomach and duodenal regions were intimately plastered under the liver with fibrinous exudate and as it was readily apparent this was not going to be able to be successfully completed laparoscopically; the decision was made to convert to an exploratory laparotomy. The abdomen was fully desufflated. All ports removed under direct vision. A #10 bladed scalpel was used to create a longitudinal upper midline incision from the subxyphoid location down to the umbilicus. This was carried directly through the initially placed 5 mm trocar incision. Electrocautery was used to carry this down through skin and subcutaneous tissues to ensure hemostasis until I arrived upon the level of the fascia, which was then opened longitudinally in a controlled fashion with a finger in the abdomen to prevent injury to the underlying structures from electrocautery burn. Once we had full exposure, we proceeded to continue evacuating bile stained fluid with the pool suction device. We now turned our attention to a systematic review of the intra-abdominal domain. An NG tube placed by Anesthesia was confirmed to be within the gastric lumen. Finger fracture technique was performed taking down all the filmy exudative adhesions from the stomach and duodenum to the liver. Ultimately, we were able to identify a small perforated prepyloric gastric ulcer. At this juncture, three sutures of 3-0 PDS were now placed in a simple interrupted fashion and were tied down, closing the hole. The tails were left long and tagged with hemostats for identification. We then proceeded to Kocherize the duodenum and saw no evidence of a posterior duodenal perforation. I opened the lesser sac and the posterior wall of the stomach was evaluated to be healthy as well. I then used a 3-0 PDS suture in standard running fashion to close the defect in the lesser sac. A small tongue of omentum was now laid over the perforated gastric ulcer through the tails of the initially placed sutures and then the tails of the sutures were tied down to one another, once again successfully performing the modified Carlos patch repair of the perforated gastric ulcer. I guided the NG tube through the repair and it was taped at 58 cm at the nares. We now proceeded to copiously irrigate the intra-abdominal domain using 6 liters of normal saline until it ran clear. Careful attention was placed in the right upper and left upper quadrants to evacuate above the liver and spleen as well as low in the pelvis. As the entire abdomen, and specifically the lower pelvis in addition to the upper pelvis, were bathing in bile stained gastric acid, I did feel it prudent to evaluate the anastomosis at this juncture even though it appeared normal upon initial inspection. Care was taken to peel the omentum off of the anastomosis without damaging it, which allowed me full circumferential evaluation of the anastomosis itself. The anastomosis appeared healthy, although the bowel around it was slightly erythematous in reaction to sitting in bile and acid. I irrigated over top of the anastomosis and saw no evidence of spillage or leak. I had circumferential control of the anastomosis and saw no evidence of a breakdown of the stapled colorectal anastomotic tissue. Nonetheless, [facility] [place] [address] OPERATIVE REPORT Name: ANTONIO BARRAZA Room #: 242-P ADM IN M.R.#: [id number] Admission: 11/15/16 Attend Phys: Ramses Calero MD Discharge: Date of : 88 Report #: [id number] to the slight hyperemia, I did elect to buttress this anastomotic repair to hopefully prevent any potential for a leak and breakdown from the bile stained gastric acid that had been residing around the anastomosis. Numerous sutures of 3-0 PDS were placed in standard Lembert fashion around the anastomosis circumferentially so as not to stricture it. Each of these was tied down independently of one another. I then sprayed 10 mL of Tisseel overlying the anastomosis and proceeded to place another tongue of omentum around the anastomosis and tied the tails of the sutures down, performing an omental buttress of the colorectal anastomosis without stricturing it. There was significant laxity on the omental buttress so as not to cause traction on the anastomosis itself. I sprayed an additional 10 mL of Tisseel both in the upper abdomen around the gastric repair as well as in the left lateral abdomen at the colorectal anastomosis as well. Once the Tisseel was dry, I irrigated with 5 more liters of normal saline and it ran clear throughout at this juncture. I now placed two 19-Cymraes round Brayan-Schafer drains, the first coming through the left lower quadrant of the abdominal wall, anchoring it to the skin using 2-0 nylon in a standard fashion. This ran up the left pericolic gutter and across midline near the suture repair of the perforated ulcer. The second drain was brought out through the right mid abdomen at the 5 mm trocar site, which was anchored to the skin using 2-0 nylon as well in standard fashion. This was placed down the right pericolic gutter and low in the pelvis. One final evaluation of the entire intra-abdominal domain including running the small bowel from the ligament of Treitz distally showed no further evidence of pathology whatsoever. It should be noted all trocars were removed and passed off the field prior to converting to an exploratory laparotomy. I now proceeded to close the midline wound using looped #1 PDS suture in standard running fashion both from superior to inferior as well as inferior to superior and where the sutures met in the middle, they were tied together. The skin and subcutaneous tissues were copiously irrigated and closed with skin kamila. I did elect to place a Prevena topical wound VAC device on the wound at this juncture to help prevent postoperative wound infection. This was placed in standard fashion with no evidence of a leak from the suction canister itself. The patient stabilized throughout the procedure, making 400 mL of concentrated urine. At the end of the procedure all instruments, needle and sponge counts were correct. The patient tolerated the procedure without incident. He was awakened and extubated in the operating room, transitioned to the recovery room in stable condition, again improving throughout with no apparent complications. <ELECTRONICALLY SIGNED> By: Romina Jefferson MD, FACS 11/17/16 1007 [id number] Romina Jefferson MD, FACS /nt
--- NOTE | ~2016-11-15 | HC ---
[facility] [place] [address] CONSULTATION Name: CHRISTIANTONIO Room #: 242-P ADM IN M.R.#: [id number] Admission: 11/15/16 Attend Phys: Ramses Calero MD Discharge: Date of : 88 Report #: [id number] THIS REPORT FOR: //name// CC: JUSTICE Ordonez DATE OF SERVICE: 11/16/2016 PULMONARY CRITICAL CARE CONSULTATION REFERRING PROVIDER: Justice Burroughs RN REASON FOR CONSULTATION: Tachypnea, sepsis. HISTORY OF PRESENT ILLNESS: Our group was asked to see this patient in consultation early this morning while hospitalized at [facility] and transferred to the ICU overnight due to tachypnea and hypotension. The patient is a 26-year-old male who underwent laparoscopic sigmoidectomy and reanastomosis on 11/07 due to recurrent diverticulitis and microperforation, re-presented yesterday afternoon with complaints of abdominal pain. The patient denied any nausea or vomiting, subsequently was evaluated in the Emergency Department with some free intraperitoneal air noted. He had increasing abdominal pain overnight, hypotension as described with significant tachypnea. Subsequently, he transferred to the ICU. CT abdomen and pelvis revealed again some free air in the abdomen, some suggestion of microperforation associated with possible gastric ulcer. The patient appears to be stable at this time. Has reasonable urine output, reasonable blood pressure, tachypnea is improved with pain medications, arterial blood gas did not suggest any significant acid-based disturbance. ALLERGIES: None known. PAST MEDICAL HISTORY: 1. Diverticulosis. 2. Status post sigmoid resection. CURRENT MEDICATIONS: 1. Vancomycin. 2. Hydromorphone. 3. Lorazepam. 4. Protonix drip. 5. Fluconazole. The patient has already received Zosyn and metronidazole. [facility] [address] [address] CONSULTATION Name: CHRISTIANTONIO Gerardo Room #: 242-P [facility] IN [facility]#: [id number] Admission: 11/15/16 Attend Phys: Ramses Calero MD Discharge: Date of : 88 Report #: [id number] SOCIAL HISTORY: The patient states he drinks on the weekends. Fiancee states he drinks frequently every day. He denies tobacco use. FAMILY HISTORY: No significant pulmonary disease. REVIEW OF SYSTEMS: CONSTITUTIONAL: Denies any fevers or chills, although is febrile overnight. ENT: No upper respiratory congestion, rhinorrhea, dysphagia or headaches. CARDIOVASCULAR: No chest pain, no palpitations. GASTROINTESTINAL: No nausea, vomiting or significant abdominal pain as described. GENITOURINARY: No dysuria, no frequency or hematuria. INTEGUMENT: Denies any rash. MUSCULOSKELETAL: No joint pains or swelling. Rest of 12-point review of systems is normal. PHYSICAL EXAMINATION: VITAL SIGNS: Temperature max 103.2, pulse 120s, respiratory rate 32, blood pressure 105/53. GENERAL: This is a young male, does not appear in any distress. ENT: Clear oropharynx. No thrush. NECK: Supple, no lymphadenopathy. LUNGS: Clear. No wheezes or crackles. CARDIOVASCULAR: Heart is tachycardic, but regular. No murmurs. ABDOMEN: Diffusely tender to palpation with voluntary guarding. EXTREMITIES: Warm with 2+ pulses, no edema. LABORATORY DATA: Sodium 137, potassium 3.5, chloride 104, bicarbonate 21, BUN 13, creatinine 1.2, glucose 107. Total protein 6.3, albumin 2.8, total bilirubin was 2.5 up from 1.8 yesterday. White blood cell count 15,000; hemoglobin 12; hematocrit 35; platelet count 342; 31% band forms. Arterial blood gas on room air revealed pH 7.43, pCO2 of 31, pO2 of 74, bicarbonate 20, lactate was 1.2. IMPRESSION: 1. Free intraperitoneal air ____ perforated viscus. 2. Recent sigmoidectomy. 3. Sepsis secondary to the above. SUGGESTIONS: 1. Discussed with Dr. Jefferson of Surgical service ____ go back to the operating room this morning for further evaluation. 2. Antimicrobial therapy per Infectious Disease service. 3. Continue ICU care with sepsis protocol. 4. Available to assist perioperatively. [address] [address] CONSULTATION Name: ANTONIO BARRAZA Room #: 242-P [facility] IN .R.#: [id number] Admission: 11/15/16 Attend Phys: Ramses Calero MD Discharge: Date of : 88 Report #: [id number] Total critical care time not including procedures is 40 minutes to this point. <ELECTRONICALLY SIGNED> By: Raphael Martins MD 11/20/16 0916 [id number] Raphael Martins MD /nt
[~2016-11-15 17:34] MED LIST changes: +PROBIOTIC1 EAC1 PO; +ZOFRAN ODT4 MG DISSOLVE
[2016-11-15 17:35] VITALS: BP 98/53
[2016-11-15 18:46] LABS: HEMATOCRIT 37.3 % (42.0-52.0); HEMOGLOBIN 13.6 gm/dL (14.0-18.0); MCH 31.5 pg (26.0-34.0); MCHC 36.5 g/dL (28.0-37.0); MCV 86.1 fL (80.0-100.0); PLATELET COUNT 431 thou/uL (150-400); RBC 4.33 mil/uL (4.50-6.00); RDW 13.4 % (10.5-14.5)
[2016-11-15 18:47] LABS: MANUAL DIFF YES
[2016-11-15 18:47] LABS: POC CA IONIZED 4.7 mg/dL (4.5-5.3); POC HEMOGLOBIN 12.9 g/dL (14.0-18.0); POC POTASSIUM 3.8 mmol/L (3.5-5.1)
[2016-11-15 19:02] LABS: CALCIUM 10.2 mg/dL (8.5-10.1); CREATININE 1.1 mg/dL (0.7-1.3); POTASSIUM 3.7 mmol/L (3.5-5.1)
[2016-11-15 19:07] LABS: ALBUMIN 3.8 g/dL (3.4-5.0); TOTAL BILIRUBIN 1.8 mg/dL (<0.1-1.0); TOTAL PROTEIN 7.6 g/dL (6.4-8.2)
[2016-11-15 19:12] LABS: ABSOLUTE NEUTROPHILS 11.3 thou/uL (1.4-8.2); TOTAL CELL COUNT 100
[2016-11-15 19:13] LABS: ANISOCYTOSIS 1+; MICROCYTES SLIGHT
[2016-11-15 20:45] VITALS: BP 98/57
[2016-11-15 21:35] VITALS: BP 131/53
[2016-11-16] VITALS (53 sets, daily range): BP systolic 88–137; BP diastolic 44–94
[2016-11-16 04:34] LABS: HEMATOCRIT 34.8 % (42.0-52.0); HEMOGLOBIN 12.2 gm/dL (14.0-18.0); MCH 31.2 pg (26.0-34.0); MCV 89.3 fL (80.0-100.0); RDW 13.2 % (10.5-14.5); WBC 14.6 thou/uL (4.0-11.0)
[2016-11-16 04:40] LABS: MANUAL DIFF YES; PLATELET COUNT 342 thou/uL (150-400)
[2016-11-16 04:46] LABS: APTT 27.5 Seconds (24.5-32.8); INR 1.3; PROTIME 12.8 Seconds (9.3-11.4)
[2016-11-16 04:50] LABS: ALBUMIN 2.8 g/dL (3.4-5.0); CALCIUM 8.5 mg/dL (8.5-10.1); CREATININE 1.2 mg/dL (0.7-1.3); POTASSIUM 3.5 mmol/L (3.5-5.1); TOTAL BILIRUBIN 2.5 mg/dL (<0.1-1.0); TOTAL PROTEIN 6.3 g/dL (6.4-8.2)
[2016-11-16 05:42] LABS: ABSOLUTE NEUTROPHILS 11.5 thou/uL (1.4-8.2); ATYPICAL LYMPHS 2 %; TOTAL CELL COUNT 100
[2016-11-16 05:43] LABS: LARGE PLATELETS OCCASIONAL
[2016-11-16 05:50] LABS: BE(vivo) -3.6 mmol/L (-2 to +3); HCO3 20.2 mmol/L (22.0-26.0); LACTATE 1.39 mmol/L (0.5-2.0); O2(CT) 12.1 mL/dL (15.0-23.0); PCO2 32.8 mmHg (35.0-45.0); pH 7.408 (7.360-7.450); sO2 63.5 % (92.0-98.0); tCO2 21.2 mmol/L (24.0-30.0)
[2016-11-16 05:51] LABS: ABG SAMPLE TYPE VENOUS; O2Hb 68.7 % (92.0-98.0); PO2 32.4 mmHg (80.0-100.0)
[2016-11-16 05:52] LABS: ABG COMMENT VENOUS SAMPLE?; STICK SITE R.RADIAL
[2016-11-16 06:17] LABS: ABG SAMPLE TYPE ARTERIAL; BE(vivo) -3.5 mmol/L (-2 to +3); LACTATE 1.21 mmol/L (0.5-2.0); O2(CT) 16.1 mL/dL (15.0-23.0); O2Hb 94.5 % (92.0-98.0); PCO2 31.1 mmHg (35.0-45.0); PO2 74.1 mmHg (80.0-100.0); STICK SITE R.BRACHIAL; pH 7.426 (7.360-7.450); sO2 95.4 % (92.0-98.0); tCO2 20.9 mmol/L (24.0-30.0)
[2016-11-16 08:25] LABS: CREATININE 1.3 mg/dL (0.7-1.3); POTASSIUM 3.6 mmol/L (3.5-5.1)
[2016-11-16 12:55] LABS: CALCIUM 6.9 mg/dL (8.5-10.1); CREATININE 1.1 mg/dL (0.7-1.3)
[2016-11-16 19:27] LABS: CALCIUM 7.1 mg/dL (8.5-10.1); CREATININE 1.2 mg/dL (0.7-1.3); POTASSIUM 3.9 mmol/L (3.5-5.1)
[2016-11-17] VITALS (40 sets, daily range): BP systolic 102–124; BP diastolic 54–95
[2016-11-17 02:09] LABS: CALCIUM 7.6 mg/dL (8.5-10.1); CREATININE 1.1 mg/dL (0.7-1.3); POTASSIUM 3.8 mmol/L (3.5-5.1)
[2016-11-17 06:20] LABS: HEMATOCRIT 31.8 % (42.0-52.0); HEMOGLOBIN 11.1 gm/dL (14.0-18.0); MCH 31.2 pg (26.0-34.0); MCHC 34.8 g/dL (28.0-37.0); MCV 89.7 fL (80.0-100.0); RBC 3.55 mil/uL (4.50-6.00); RDW 13.7 % (10.5-14.5)
[2016-11-18] VITALS (19 sets, daily range): BP systolic 92–134; BP diastolic 57–82
[2016-11-18 05:49] LABS: HEMATOCRIT 29.4 % (42.0-52.0); HEMOGLOBIN 10.6 gm/dL (14.0-18.0); MCH 31.6 pg (26.0-34.0); MCHC 35.8 g/dL (28.0-37.0); MCV 88.2 fL (80.0-100.0); RBC 3.34 mil/uL (4.50-6.00); RDW 13.7 % (10.5-14.5)
[2016-11-18 06:02] LABS: CALCIUM 7.8 mg/dL (8.5-10.1); MAGNESIUM 1.8 mg/dL (1.8-2.4); PHOSPHORUS 1.9 mg/dL (2.5-4.9); POTASSIUM 3.4 mmol/L (3.5-5.1)
[2016-11-19] VITALS (25 sets, daily range): BP systolic 92–132; BP diastolic 67–83
[2016-11-19 05:32] LABS: HEMATOCRIT 29.8 % (42.0-52.0); HEMOGLOBIN 10.7 gm/dL (14.0-18.0); MCH 31.7 pg (26.0-34.0); MCHC 35.9 g/dL (28.0-37.0); MCV 88.3 fL (80.0-100.0); RBC 3.37 mil/uL (4.50-6.00); RDW 13.7 % (10.5-14.5); WBC 14.3 thou/uL (4.0-11.0)
[2016-11-19 05:41] LABS: CALCIUM 7.5 mg/dL (8.5-10.1); CREATININE 0.9 mg/dL (0.7-1.3); MAGNESIUM 1.8 mg/dL (1.8-2.4); PHOSPHORUS 3.2 mg/dL (2.5-4.9); POTASSIUM 3.1 mmol/L (3.5-5.1)
[2016-11-20] VITALS (19 sets, daily range): BP systolic 107–138; BP diastolic 50–82
[2016-11-20 04:13] LABS: HEMATOCRIT 30.7 % (42.0-52.0); HEMOGLOBIN 10.8 gm/dL (14.0-18.0); MCH 31.1 pg (26.0-34.0); MCHC 35.2 g/dL (28.0-37.0); MCV 88.3 fL (80.0-100.0); PLATELET COUNT 409 thou/uL (150-400); RBC 3.48 mil/uL (4.50-6.00); RDW 14.3 % (10.5-14.5); WBC 14.8 thou/uL (4.0-11.0)
[2016-11-20 04:14] LABS: MANUAL DIFF YES
[2016-11-20 04:21] LABS: ALBUMIN 1.8 g/dL (3.4-5.0); CALCIUM 7.4 mg/dL (8.5-10.1); CREATININE 0.9 mg/dL (0.7-1.3); MAGNESIUM 1.8 mg/dL (1.8-2.4); PHOSPHORUS 3.4 mg/dL (2.5-4.9); POTASSIUM 3.1 mmol/L (3.5-5.1); TOTAL BILIRUBIN 1.4 mg/dL (<0.1-1.0)
[2016-11-20 06:59] LABS: ABSOLUTE NEUTROPHILS 12.4 thou/uL (1.4-8.2); ANISOCYTOSIS SLIGHT; TOTAL CELL COUNT 100
[2016-11-21 05:00] VITALS: BP 115/64
[2016-11-21 07:55] LABS: CALCIUM 8.1 mg/dL (8.5-10.1); CREATININE 0.7 mg/dL (0.7-1.3); PHOSPHORUS 3.8 mg/dL (2.5-4.9); POTASSIUM 3.9 mmol/L (3.5-5.1)
[2016-11-21 08:18] VITALS: BP 110/71
[2016-11-21 12:15] VITALS: BP 124/72
[2016-11-21 16:28] VITALS: BP 120/68
[2016-11-21 20:10] VITALS: BP 124/73
[2016-11-22] VITALS: BP 112/87
[2016-11-22 05:15] VITALS: BP 120/68
[2016-11-22 06:34] LABS: CALCIUM 8.4 mg/dL (8.5-10.1); CREATININE 0.7 mg/dL (0.7-1.3); MAGNESIUM 2.1 mg/dL (1.8-2.4); PHOSPHORUS 4.4 mg/dL (2.5-4.9); POTASSIUM 4.1 mmol/L (3.5-5.1)
[2016-11-22 08:58] VITALS: BP 133/74
[2016-11-22 12:02] VITALS: BP 111/64
[2016-11-22 16:30] VITALS: BP 123/63
[2016-11-22 20:30] VITALS: BP 122/71
[2016-11-23 05:25] VITALS: BP 104/66
[2016-11-23 05:45] LABS: HEMOGLOBIN 11.3 gm/dL (14.0-18.0); MCH 30.4 pg (26.0-34.0); MCHC 34.2 g/dL (28.0-37.0); MCV 88.9 fL (80.0-100.0); RBC 3.71 mil/uL (4.50-6.00); WBC 10.9 thou/uL (4.0-11.0)
[2016-11-23 06:15] LABS: CREATININE 0.8 mg/dL (0.7-1.3)
[2016-11-23 06:17] LABS: POTASSIUM 5.1 mmol/L (3.5-5.1)
[2016-11-23 08:16] VITALS: BP 140/84
[2016-11-23 11:30] VITALS: BP 115/74
[2016-11-23 15:38] VITALS: BP 100/62
[2016-11-23 20:00] VITALS: BP 108/71
[2016-11-24 04:15] VITALS: BP 109/64
[2016-11-24 06:53] LABS: ALBUMIN 2.3 g/dL (3.4-5.0); CALCIUM 8.7 mg/dL (8.5-10.1); POTASSIUM 4.1 mmol/L (3.5-5.1)
[2016-11-24 08:03] VITALS: BP 110/61
[2016-11-24] MEDS ORDERED: AUGMENTIN 875-1 EACH PO (09:37)
[2016-11-24] MEDS ORDERED: PROTONIX40 M1 PO (09:38)
[2016-11-24 12:00] VITALS: BP 106/61
[2016-11-24 13:31] VITALS: BP 106/61
== END 2016-11-24 16:40 | disposition home or self-care (01) | DRG 853 ==
LOC: ER 17:34 → ICU 19:55 → 4W 19:55 → EROBS 19:55 → 4W 21:08 → ICU 11-16 05:33 → 3W 11-20 18:17 → ENTRNSPT 11-24 16:25 → 3W 11-24 16:40
PROVIDERS: Hospitalist; Internal Medicine Infectious Disease; Internal Medicine Pulmonary Disease; Nurse Practitioner Family; Physician Assistant; Surgery
PROC: 3E0336Z Introduction of Nutritional Substance into Peripheral Vein, Percutaneous Approach (ICD-10-PCS; 2016-11-15)
PROC: 0WJG0ZZ Inspection of Peritoneal Cavity, Open Approach (ICD-10-PCS; principal; 2016-11-16)
PROC: 0DU907Z Supplement Duodenum with Autologous Tissue Substitute, Open Approach (ICD-10-PCS; 2016-11-16)
PROC: 0DUE07Z Supplement Large Intestine with Autologous Tissue Substitute, Open Approach (ICD-10-PCS; 2016-11-16)
DX: A41.9 Sepsis, unspecified organism (principal); K65.9 Peritonitis, unspecified; K25.1 Acute gastric ulcer with perforation; J98.11 Atelectasis; J90 Pleural effusion, not elsewhere classified; F41.9 Anxiety disorder, unspecified; F10.10 Alcohol abuse, uncomplicated; Y90.9 Presence of alcohol in blood, level not specified; K21.9 Gastro-esophageal reflux disease without esophagitis; R65.20 Severe sepsis without septic shock
CPT/HCPCS: 10040; 10045; 10078; 10203; 10779; 50101; 50249; 50331; 50386; 50455; 50555; 50953; 51412; 51437; 51489; 52265; 53307; 56462; 56525; 56527; 56530; 56639; 57092; 62110; 62900; 65120; 70005

== ENCOUNTER 2019-02-08 21:11 | Emergency (ER) | payer OTHER ==
[~2019-02-08] VITALS: Ht 172.7 cm; Wt 83.9 kg
[~2019-02-08 21:11] MED LIST changes: +AUGMENTIN 875-1 EACH PO; +PROTONIX40 M1 PO
[2019-02-08 22:35] VITALS: BP 116/81
== END 2019-02-08 22:35 | disposition home or self-care (01) ==
LOC: ER 21:11
DX: S30.93XA Unspecified superficial injury of penis, initial encounter (principal); W86.0XXA Exposure to domestic wiring and appliances, initial encounter; Y93.89 Activity, other specified; Y92.89 Other specified places as the place of occurrence of the external cause; Y99.8 Other external cause status